=== PATIENT | female | born 1960 | race Caucasian/White ===

== ENCOUNTER 2017-11-08 08:02 | Outpatient (CLI) | payer BC | END 2017-11-08 08:03 | disposition home or self-care (01) | LOC: BICMAMMO 08:02 | PROVIDERS: ATTEND Obstetrics & Gynecology | DX: Z12.31 Encounter for screening mammogram for malignant neoplasm of breast (principal) | CPT/HCPCS: 77063; 77067 ==

== ENCOUNTER 2018-09-14 10:01 | Emergency (ER) | payer BC | END 2018-09-14 10:59 | disposition left against medical advice (07) | LOC: ERS 10:01 | DX: Z53.21 Procedure and treatment not carried out due to patient leaving prior to being seen by health care provider (principal) ==

== ENCOUNTER 2019-01-18 08:41 | Outpatient (CLI) | payer BC ==
--- NOTE | 2019-01-18 09:42 | MMO ---
Bilateral MAMMO Bilat Screen [facility]. CLINICAL HISTORY: Patient is 58 years old and is seen for screening. The patient has no family history of breast cancer. The patient has no personal history of cancer. VIEWS: The views performed were: bilateral craniocaudal with tomosynthesis and bilateral mediolateral oblique with tomosynthesis. FILMS COMPARED: The present examination has been compared to a prior imaging study performed at [facility] on 11/08/2017. This study has been interpreted with the assistance of computer-aided detection. MAMMOGRAM FINDINGS: The breasts are heterogeneously dense, which could obscure a lesion on mammography. There are stable benign appearing calcifications seen in both breasts. There are also vascular calcifications. There are no suspicious masses, suspicious calcifications, or new areas of architectural distortion. IMPRESSION: THERE IS NO MAMMOGRAPHIC EVIDENCE OF MALIGNANCY. A ROUTINE FOLLOW-UP MAMMOGRAM IN 1 YEAR IS RECOMMENDED. THE RESULTS OF THIS EXAM WERE SENT TO THE PATIENT. ACR BI-RADS Category 2 - Benign finding MAMMOGRAPHY NOTE: 1. A negative mammogram report should not delay a biopsy if a dominant of clinically suspicious mass is present. 2. Approximately 10% to 15% of breast cancers are not detected by mammography. 3. Adenosis and dense breasts may obscure an underlying neoplasm. Reported by: IRIS BAIN MD Electonically Signed: [id number]
== END 2019-01-18 08:42 | disposition home or self-care (01) ==
LOC: BICMAMMO 08:41
PROVIDERS: ATTEND Internal Medicine
DX: Z12.31 Encounter for screening mammogram for malignant neoplasm of breast (principal)
CPT/HCPCS: 77063; 77067

== ENCOUNTER 2019-03-07 13:30 | Outpatient (CLI) | payer BC ==
--- NOTE | 2019-03-07 14:17 | BD ---
BONE DENSITOMETRY: Date: 03/07/19 HISTORY: 59-year-old female for postmenopausal osteoporosis screening. FINDINGS: Lumbar Spine: BMD (g/cm2) L1 0.911 T-Score: -0.7 L2 0.914 T-Score: -1.0 L3 0.990 T-Score: -0.9 L4 0.998 T-Score: -0.6 Total 0.956 T-Score: -0.8 Left Femoral Neck: 0.669 T-Score: -1.6 Total Femur: 0.859 T-Score: -0.7 IMPRESSION: 1. Bone mineral density of the lumbar spine within normal range. 2. Bone mineral density of the femoral neck indicates osteopenia. 10 YEAR FRACTURE RISK: Major osteoporotic fracture: 8.3% Hip fracture: 0.8% POS: [facility]
== END 2019-03-07 13:31 | disposition home or self-care (01) ==
LOC: BICMAMMO 13:30
PROVIDERS: ATTEND Internal Medicine
DX: Z13.820 Encounter for screening for osteoporosis (principal); M85.852 Other specified disorders of bone density and structure, left thigh
CPT/HCPCS: 77080

== ENCOUNTER 2021-05-05 09:35 | Outpatient (CLI) | payer OTHER | END 2021-05-05 09:36 | disposition home or self-care (01) | LOC: BICRAD 09:35 | PROVIDERS: ATTEND Podiatrist | DX: M72.2 Plantar fascial fibromatosis (principal); M25.471 Effusion, right ankle; M79.89 Other specified soft tissue disorders; E65 Localized adiposity; M77.32 Calcaneal spur, left foot; W19.XXXA Unspecified fall, initial encounter ==

== ENCOUNTER 2023-07-20 07:55 | Outpatient (CLI) | payer OTHER | END 2023-07-20 07:56 | disposition home or self-care (01) | LOC: BICULT 07:55 | PROVIDERS: ATTEND Internal Medicine Gastroenterology | DX: R10.13 Epigastric pain (principal); R10.11 Right upper quadrant pain; K74.60 Unspecified cirrhosis of liver | CPT/HCPCS: 76705 ==